=== PATIENT | male | born 1980 | race Two or more races ===

== ENCOUNTER 2020-09-08 17:11 | Emergency (ER) | payer MEDICAID ==
[~2020-09-08] VITALS: Ht 170.2 cm; Wt 77.1 kg
[2020-09-08 17:15] VITALS: BP 118/72
[2020-09-08] MEDS ORDERED: methylPREDNISolone SOD SUCC 125 MG/2 ML VL IM ONE (18:30)
[2020-09-08] MEDS ORDERED: cefTRIAXone SOD 1,000 MG VL IM ONE (18:30)
== END 2020-09-08 18:35 | disposition home or self-care (01) ==
LOC: ER 17:11
DX: J02.0 Streptococcal pharyngitis (principal); F15.10 Other stimulant abuse, uncomplicated; F12.10 Cannabis abuse, uncomplicated; Z20.822 Contact with and (suspected) exposure to COVID-19
CPT/HCPCS: 36415; 71045; 87426; 87880; 96372; 99284; J0696; J2930